=== PATIENT | female | born 2000 | race Caucasian/White ===

== ENCOUNTER 2022-12-17 11:37 | Inpatient (IN) | payer BC ==
[~2022-12-17] VITALS: Ht 165.1 cm; Wt 94.8 kg
[2022-12-17 12:33] LABS: BASOPHILS % (AUTO) 0.2 % (0-1); EOSINOPHILS # (AUTO) 0.3 X10'3 (0-0.9); EOSINOPHILS % (AUTO) 1.3 % (0-6); HEMATOCRIT 42.4 % (35.0-45.0); HEMOGLOBIN 14.3 g/dl (12.0-16.0); LYMPHOCYTES # (AUTO) 1.4 X10'3 (1.1-4.8); LYMPHOCYTES % (AUTO) 7.4 % (21-51); MEAN CORPUSCULAR HEMOGLOBIN 30.5 PG (27.0-31.0); MEAN CORPUSCULAR HGB CONC 33.8 g/dL (33.0-36.5); MEAN CORPUSCULAR VOLUME 90.4 FL (78-98); MONOCYTES # (AUTO) 1.2 X10'3 (0-0.9); MONOCYTES % (AUTO) 6.1 % (2-12); NEUTROPHILS # (AUTO) 16.6 X10'3 (1.8-7.7); PLATELET COUNT 463 X10'3 (140-440); RED BLOOD COUNT 4.69 X10'6 (4.20-5.60); RED CELL DISTRIBUTION WIDTH 13.6 % (11.5-14.5); WHITE BLOOD COUNT 19.5 X10'3 (4.5-11.0)
[2022-12-17 12:46] LABS: ALANINE AMINOTRANSFERASE 21 U/L (12-78); ALBUMIN 3.5 G/DL (3.4-5.0); ALBUMIN/GLOBULIN RATIO 0.7 (1.1-1.5); ALKALINE PHOSPHATASE 112 IU/L (46-116); ANION GAP 8 (8-16); ASPARTATE AMINO TRANSFERASE 18 U/L (10-37); BILIRUBIN,TOTAL 0.5 MG/DL (0.1-1.0); BLOOD UREA NITROGEN 6 MG/DL (7-18); BUN/CREATININE RATIO 9.2 (10.0-20.0); CALCIUM 9.5 MG/DL (8.5-10.1); CHLORIDE 102 MMOL/L (99-107); CREATININE 0.65 MG/DL (0.40-0.90); GLUCOSE 100 MG/DL (70-104); POTASSIUM 3.9 MMOL/L (3.5-5.1); SODIUM 137 MMOL/L (135-145); TOTAL CARBON DIOXIDE 27.5 MMOL/L (24-32); TOTAL PROTEIN 8.5 G/DL (6.4-8.2); eCRCL 122 ML/MIN; eGFR > 90 ML/MIN
[2022-12-17 13:33] LABS: BILIRUBIN,URINE NEGATIVE (Neg); CLARITY,URINE CLOUDY (Clear); COLOR,URINE YELLOW (Yellow); GLUCOSE, URINE NEGATIVE (Neg); KETONES,URINE TRACE mg/dl (Neg); LEUKOCYTE ESTERASE ,URINE SMALL (Neg); NITRITES, URINE POSITIVE (Neg); OCCULT BLOOD,URINE LARGE (Neg); PH,URINE 6.5 (4.8-8.0); PROTEIN,URINE >=300 mg/dl (Neg); URINE HCG NEGATIVE (NEG); UROBILINOGEN,URINE 0.2 E.U/dL (0.2-1.0)
[2022-12-17 13:34] LABS: UA COLLECTION TYPE CLN CATCH MIDSTREAM
[2022-12-17 13:39] LABS: MUCUS STRANDS FEW /LPF (Neg); RBC,URINE TNTC /HPF (0-2); SQUAMOUS EPITHELIAL CELL,UR FEW /LPF (FEW); TRANSITIONAL EPI CELLS,URINE FEW /HPF; WBC,URINE TNTC /HPF (0-4)
[2022-12-17 13:40] LABS: BACTERIA,URINE FEW /HPF (Neg)
[2022-12-17] MEDS ORDERED: levoFLOXACIN-Levaquin 750MG/D5 150 ML IV ONE (14:00)
[2022-12-17] MEDS ORDERED: oxyCODONE/APAP 5-325mg tablet PO ONE (15:15)
[2022-12-17] MEDS ORDERED: INSU100C4 SQ (20:21)
[2022-12-17] MEDS ORDERED: LANTUS SQ (20:21)
[2022-12-17] MEDS ORDERED: diphenhydrAMINE 50 mg/ml inj IV PRN (20:40)
[2022-12-17] MEDS ORDERED: ondansetron/PF 4mg/2ml inj IV PRN (20:40)
[2022-12-17] MEDS ORDERED: acetaminophen 325mg tablet PO PRN ×2 (20:40)
[2022-12-17] MEDS ORDERED: bisacodyl 10mg suppository rectal RC PRN (20:40)
[2022-12-17] MEDS ORDERED: HYDROmorphone inj. 0.5 MG/0.5 ML DISP.SYRIN IV PRN (20:40)
[2022-12-17] MEDS ORDERED: metoclopramide 5 mg/ml inj IV PRN (20:40)
[2022-12-17] MEDS ORDERED: mag hydrox/Alum hydrox/simeth 30ml oral suspension PO PRN (20:40)
[2022-12-17] MEDS ORDERED: morphine 2 MG/ML inj. syringe IV PRN ×2 (20:40)
[2022-12-17] MEDS ORDERED: ondansetron 4mg rapidly disintigrating tab PO PRN (20:40)
[2022-12-17] MEDS ORDERED: HYDROcodone/acetaminophen 5mg/325mg tablet PO PRN (20:40)
[2022-12-17] MEDS ORDERED: HYDROcodone/acetaminophen 10/325mg tab PO PRN (20:40)
[2022-12-17] MEDS ORDERED: magnesium hydroxide 30ml (MOM) UD suspension PO PRN (20:40)
[2022-12-17] MEDS ORDERED: diphenhydrAMINE 25mg capsule PO PRN (20:40)
[2022-12-17] MEDS ORDERED: DEXTROSE 15 GM of carb/4 tabs (each vial/BOTTLE has 4 tablets) PO PRN ×2 (20:45)
[2022-12-17] MEDS ORDERED: ringers solution, lacted 1,000 ML IV ONE (20:45)
[2022-12-17] MEDS ORDERED: glucagon, human recombinant 1mg kit SUBCUT PRN (20:45)
[2022-12-17] MEDS ORDERED: MESSAGE TO PHARMACY PO ONE (20:45)
[2022-12-17] MEDS ORDERED: dextrose 50%-water 50ml dispensing syringe IV PRN ×2 (20:45)
[2022-12-17] MEDS ORDERED: insulin Lispro (HumaLOG) vial - multi-dose SQ SCH (20:45)
[2022-12-17] MEDS ORDERED: temazepam 15mg capsule PO PRN (21:00)
[2022-12-17] MEDS ORDERED: insulin glargine (Lantus) pen - multi-dose SQ SCH (21:00)
[2022-12-17] MEDS ORDERED: tamsulosin 0.4mg capsule PO SCH (21:00)
[2022-12-17 21:10] LABS: HEMOGLOBIN A1C 9.3 % (4.5-6.2)
[2022-12-17 21:14] LABS: CREATINE KINASE 61 U/L (26-192); PHOSPHORUS 3.6 MG/DL (2.3-4.5); PRO BRAIN NATRIURETIC PEPTIDE 39 PG/ML (0-125); THYROID STIMULATING HORMONE 2.51 ulU/ml (0.34-4.50)
[2022-12-17 21:18] LABS: LIPASE 10 U/L (16-77)
[2022-12-17 21:30] LABS: APTT 30 SECONDS (22-32); PROTHROMBIN TIME 11.1 SECONDS (9.0-12.0)
--- NOTE | 2022-12-17 21:52 | NUR ---
pt admin own home med [id number] gave 55 units of home insulin. informed
--- NOTE | 2022-12-17 21:54 | NUR ---
pt education given on takeing home meds while admitted to hospital. pt understood with return demo
[2022-12-17] MEDS: normal saline 1000ml 1,000 ML IV SCH (23:10)
--- NOTE | 2022-12-18 00:15 | NUR ---
Patient in room [facility] 4022. I have received report from CHERRI Aguayo and had the opportunity to ask questions and assume patient care.
--- NOTE | 2022-12-18 00:27 | NUR ---
report called to floor nurse. pt tx to room 4022a by tech
[2022-12-18 00:45] VITALS: BP 126/78; PULSE 104; RESP 16; TEMP 98; O2SAT 98
--- NOTE | 2022-12-18 00:45 | NUR ---
pt arrived to floor via wheelchair. settled into bed. oriented to the room. call light in reach.
[2022-12-18 06:06] VITALS: BP 120/61; PULSE 91; RESP 13; TEMP 98.2; O2SAT 97
--- NOTE | 2022-12-18 06:31 | NUR ---
Problems reprioritized. Patient report given, questions answered & plan of care reviewed with SHA Meza.
[2022-12-18] MEDS: normal saline 1000ml 1,000 ML IV SCH ×2 (07:15→07:18)
[2022-12-18] MEDS ORDERED: pantoprazole 40mg Tablet.DR PO SCH (07:30)
[2022-12-18] MEDS ORDERED: tamsulosin 0.4mg capsule PO SCH (08:00)
[2022-12-18] MEDS ORDERED: levoFLOXACIN-Levaquin 750MG/D5 150 ML IV SCH (08:00)
[2022-12-18] MEDS ORDERED: docusate sod 100mg capsule PO SCH (08:00)
[2022-12-18] MEDS ORDERED: heparin, porcine 5000 units/ml vial SQ SCH (08:00)
[2022-12-18 08:10] VITALS: RESP 13; O2SAT 97
--- NOTE | 2022-12-18 08:18 | NUR ---
Student documentation: I have reviewed all interventions, assessments performed and documented by [place] [facility] Elena VELEZ Student. Student Medication Administration: For medication-passes by student of [facility] program in the time frame of 0630 to 1300, medications were reviewed, dispensed, administered and documented per hospital policy.
[2022-12-18 08:55] LABS: BASOPHILS # (AUTO) 0.1 X10'3 (0-0.2); BASOPHILS % (AUTO) 0.6 % (0-1); EOSINOPHILS # (AUTO) 0.3 X10'3 (0-0.9); EOSINOPHILS % (AUTO) 2.7 % (0-6); HEMATOCRIT 39.4 % (35.0-45.0); HEMOGLOBIN 13.4 g/dl (12.0-16.0); LYMPHOCYTES % (AUTO) 19.1 % (21-51); MEAN CORPUSCULAR HEMOGLOBIN 31.1 PG (27.0-31.0); MEAN CORPUSCULAR HGB CONC 34.1 g/dL (33.0-36.5); MEAN CORPUSCULAR VOLUME 91.1 FL (78-98); MEAN PLATELET VOLUME 8.3 FL (7.4-10.4); MONOCYTES # (AUTO) 0.9 X10'3 (0-0.9); MONOCYTES % (AUTO) 8.5 % (2-12); NEUTROPHILS # (AUTO) 7.2 X10'3 (1.8-7.7); NEUTROPHILS % (AUTO) 69.1 % (42-75); PLATELET COUNT 417 X10'3 (140-440); RED BLOOD COUNT 4.32 X10'6 (4.20-5.60); RED CELL DISTRIBUTION WIDTH 13.3 % (11.5-14.5); WHITE BLOOD COUNT 10.3 X10'3 (4.5-11.0)
[2022-12-18 09:07] LABS: ALANINE AMINOTRANSFERASE 16 U/L (12-78); ALBUMIN/GLOBULIN RATIO 0.7 (1.1-1.5); ALKALINE PHOSPHATASE 94 IU/L (46-116); ANION GAP 7 (8-16); ASPARTATE AMINO TRANSFERASE 9 U/L (10-37); BILIRUBIN,TOTAL 0.6 MG/DL (0.1-1.0); BLOOD UREA NITROGEN 5 MG/DL (7-18); BUN/CREATININE RATIO 9.6 (10.0-20.0); CALCIUM 9.1 MG/DL (8.5-10.1); CHLORIDE 106 MMOL/L (99-107); CHOL/HDL RATIO 3.1 (0.00-4.99); CHOLESTEROL 147 MG/DL (0-200); CREATININE 0.52 MG/DL (0.40-0.90); GLUCOSE 102 MG/DL (70-104); HDL CHOLESTEROL 48 MG/DL (35-60); LDL CHOLESTEROL 85 MG/DL (50-100); POTASSIUM 3.6 MMOL/L (3.5-5.1); SODIUM 138 MMOL/L (135-145); TOTAL CARBON DIOXIDE 25.4 MMOL/L (24-32); TOTAL PROTEIN 7.5 G/DL (6.4-8.2); TRIGLYCERIDES 56 MG/DL (20-135); eCRCL 153 ML/MIN; eGFR > 90 ML/MIN
[2022-12-18 10:10] VITALS: BP 126/78; PULSE 92; RESP 14; TEMP 98.6; O2SAT 97
[2022-12-18] MEDS ORDERED: FLU VACC QS2023-24(6MOS UP)/PF 60 MCG/0.5 ML SYRINGE IM ONE (12:00)
[2022-12-18] MEDS ORDERED: tamsulosin capsule PO (12:27)
[2022-12-18] MEDS ORDERED: LEVO750T68 PO (12:27)
--- NOTE | 2022-12-18 12:35 | NUR ---
DM Consult: Pt admit DX L pyelonephritis w/hydronephrosis and uteric stones per EMR. Hx T1DM A1C 9.3% and 3 episodes of pyelonephritis past month per EMR. Pt seen by RD at bedside for written/verbal DM diet ed w/ RD contact information provided. Pt reports Glu higher than baseline recently though closely follows w/ an RN and her endocrinoligist regarding this now has CGM to assist w/ Glu control. Pt reports takes Novolog and now changed to Trulicity per clearance center manager has received DM ed in past declines nutrition concerns this admit. RD encouraged pt to contact dietitian's office if further nutrition questions/concerns. Pt w/ rule out sepsis per H&P, however, now w/ discharge orders in EMR discharging today per RN. Addendum: 12/18/22 at [address] Amended: Links added.
== END 2022-12-18 14:04 | disposition home or self-care (01) | DRG 690 ==
LOC: EEVIPCON 11:38 → ER 11:38 → ED HOLD 20:44 → ORTHO 4S 12-18 00:33
PROVIDERS: ADMIT Family Medicine; ATTEND Internal Medicine
DX: N13.6 Pyonephrosis (principal); E10.65 Type 1 diabetes mellitus with hyperglycemia; N04.9 Nephrotic syndrome with unspecified morphologic changes; R59.0 Localized enlarged lymph nodes; B96.20 Unspecified Escherichia coli [E. coli] as the cause of diseases classified elsewhere; B96.4 Proteus (mirabilis) (morganii) as the cause of diseases classified elsewhere; I10 Essential (primary) hypertension; E86.0 Dehydration; Z87.442 Personal history of urinary calculi; Z88.0 Allergy status to penicillin; Z87.441 Personal history of nephrotic syndrome
CPT/HCPCS: 36415; 74176; 76770; 80053; 80061; 81001; 81025; 82550; 82948; 83036; 83605; 83690; 83735; 83880; 84100; 84443; 85025; 85610; 85730; 87077; 87081; 87088; 87186; 90686; 99285; G0378; J1644; J1815; J1956; J7030; J7120